=== PATIENT | female | born 1960 | race African-American/Black ===

== ENCOUNTER 2017-02-15 09:32 | Outpatient (CLI) | payer OTHER ==
--- NOTE | 2017-02-15 12:05 | Ultrasound Report ---
Left breast ultrasound: Followup left breast lesion from prior examination in August 2016. Imaging of the left breast in the 2:30 position 3 cm from the nipple again demonstrates a small circumscribed echolucent mass currently measuring 2.8 mm which is unchanged. An adjacent circumscribed smaller area of hypodensity is also now noted. No other findings. Impression: Stable hypodensity with questionable new adjacent hypodensity. The stable lesion consistent with a small cyst. Recommendation: Repeat ultrasound in 6 months to reevaluate new hypodensity. BI-RADS CATEGORY: 3 = Probably benign ACR BI-RADS MAMMOGRAPHIC CODES: 0 = Needs additional imaging evaluation; 1 = Negative; 2 = Benign; 3 = Probably benign; 4 = Suspicious; 5 = Malignant; 6 = Known biopsy-proven malignancy COMMENT: 1. Dense breast tissue, i.e., adenosis, fibrocystic changes, etc., may obscure an underlying neoplasm. 2. Approximately 10% of cancers are not detected with mammography. 3. A negative mammography report should not delay biopsy if a clinically suspicious mass is present.
== END 2017-02-15 09:33 | disposition home or self-care (01) ==
LOC: US 09:32
PROVIDERS: ATTEND Family Medicine
DX: R92.2 Inconclusive mammogram (principal)

== ENCOUNTER 2017-08-11 09:38 | Outpatient (CLI) | payer OTHER ==
--- NOTE | 2017-08-11 10:29 | Ultrasound Report ---
Left breast sonogram: Compared to 02/15/17. History: Followup. Findings: At 2:30 position 3 cm from nipple cyst is identified measuring 0.4 x 0.3 x 0.4 cm. In the adjacent region second cyst is identified measuring 0.2 x 0.2 x 0.2 cm. BI-RADS CATEGORY: 2 = Benign ACR BI-RADS MAMMOGRAPHIC CODES: 0 = Needs additional imaging evaluation; 1 = Negative; 2 = Benign; 3 = Probably benign; 4 = Suspicious; 5 = Malignant; 6 = Known biopsy-proven malignancy COMMENT: 1. Dense breast tissue, i.e., adenosis, fibrocystic changes, etc., may obscure an underlying neoplasm. 2. Approximately 10% of cancers are not detected with mammography. 3. A negative mammography report should not delay biopsy if a clinically suspicious mass is present. Impression: Benign cysts. Annual followup with mammogram and if necessary sonogram recommended.
== END 2017-08-11 09:39 | disposition home or self-care (01) ==
LOC: US 09:38
PROVIDERS: ATTEND Family Medicine
DX: N60.02 Solitary cyst of left breast (principal)